=== PATIENT | male | born 2000 | race Asian ===

== ENCOUNTER 2024-04-17 07:08 | Outpatient (REF) | payer OTHER, SELFPAY ==
--- NOTE | ~2024-04-17 | US_ITS ---
EXAMINATION: US ABDOMEN COMPLETE CLINICAL INFORMATION: Abdominal swelling. COMPARISON: None available. TECHNIQUE: Real-time imaging of the abdominal viscera. FINDINGS: PANCREAS: Normal. ABDOMINAL AORTA: The proximal, mid, and distal segments are normal in caliber. INFERIOR VENA CAVA: Visualized portions are normal. LIVER: Normal. The liver is normal in size. The liver contour is normal. Parenchymal echogenicity is normal. No focal hepatic lesion. There is no intrahepatic biliary duct dilatation seen. GALLBLADDER: Normal. The gallbladder is physiologically distended without evidence of stones, sludge, polyps, wall thickening or pericholecystic fluid. COMMON BILE DUCT: Normal in caliber measuring 0.3 cm in diameter. RIGHT KIDNEY: Normal. No hydronephrosis. No renal calculi or focal parenchymal lesions. The kidney measures 10.2 cm in maximum dimension. LEFT KIDNEY: Normal. No hydronephrosis. No renal calculi or focal parenchymal lesions. The kidney measures 9.2 cm in maximum dimension. SPLEEN: Normal. The spleen measures 10.2 cm in maximum dimension. FREE FLUID: None. OTHER: Within the subcutaneous soft tissues in the right flank, there is a calcified shadowing nodule measuring 5 mm. Within the right anterior abdominal wall lateral to the umbilicus, there is a small fatty nodule measuring 1 cm which could represent a lipoma US/US abdomen complete IMPRESSION: 1. No acute process. 2. Small calcified nodule in the subcutaneous soft tissues of the right flank. 3. Small fatty nodule in the right anterior abdominal wall which could represent a lipoma. Electronically signed by: Reece Parson MD 04/17/2024 07:04 PM EST
== END 2024-04-17 07:09 | disposition home or self-care (01) ==
LOC: HO.UMASIMG 07:08
PROVIDERS: Visit Provider Physician Assistant Medical
DX: R19.00 Intra-abdominal and pelvic swelling, mass and lump, unspecified site (principal)
CPT/HCPCS: 76700